=== PATIENT | male | born 1970 ===

== ENCOUNTER 2021-07-07 17:51 | Emergency (ER) | payer BC ==
[2021-07-07] MEDS ORDERED: Bacitracin Oint 1 GM U/D Packet TOP ONE (18:12)
[2021-07-07] MEDS ORDERED: Lidocaine 1% 30 ML SDV INJECT ONE (18:12)
[2021-07-07 18:14] VITALS: BP 133/89; PULSE 84
== END 2021-07-07 18:45 | disposition home or self-care (01) ==
LOC: DL.ED 17:51
DX: S61.212A Laceration without foreign body of right middle finger without damage to nail, initial encounter (principal); Z87.891 Personal history of nicotine dependence; W25.XXXA Contact with sharp glass, initial encounter
CPT/HCPCS: 12001; 99282-25